=== PATIENT | male | born 1955 | race Caucasian/White ===

== ENCOUNTER 2017-12-25 21:06 | Emergency (ER) | payer BC ==
--- NOTE | 2017-12-25 22:31 | EDM.PDOC ---
ED HPI GENERAL MEDICAL PROBLEM - General Chief Complaint: ENT Problem Stated Complaint: BLOODY NOSE Time Seen by Provider: 12/25/17 21:23 Source of Information: Reports: Patient History Limitations: Reports: No Limitations - History of Present Illness INITIAL COMMENTS - FREE TEXT/NARRATIVE: 62 y.o.w.m in preh healthy condition, came to the ed due to r nostril bleed. BP was 185/87 on arrival. No trauma. Pt had a nose bleed 2 years ago. His BP was always nl in the past. 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) Other Treatments TRANSIT COACH OPERATOR: pressure to nose - Related Data Allergies Allergy/AdvReac Type Severity Reaction Status Date / Time No Known Allergies Allergy Verified 12/25/17 21:21 Home Meds: Home Meds Aspirin [Jonathon Chewable] 81 mg PO ASDIRECTED 12/25/17 [History] Hydrochlorothiazide/Lisinopril [Lisinopril/HCTZ 20-12.5 MG] 20 mg PO ASDIRECTED 12/25/17 [History] Past Medical History HEENT History: Reports: Epistaxis Cardiovascular History: Reports: Hypertension Musculoskeletal History: Reports: Fracture - Past Surgical History Musculoskeletal Surgical History: Reports: Carpal Tunnel Social & Family History - Family History Family Medical History: Noncontributory - Tobacco Use Smoking Status *Q: Current Some Day Smoker Years of Tobacco use: 10 Packs/Tins Daily: 0.1 - Caffeine Use Caffeine Use: Reports: Coffee - Recreational Drug Use Recreational Drug Use: No ED ROS ENT - Review of Systems Review Of Systems: See Below Constitutional: Reports: No Symptoms HEENT: Reports: Nosebleed Respiratory: Reports: No Symptoms Cardiovascular: Reports: No Symptoms Endocrine: Reports: No Symptoms GI/Abdominal: Reports: No Symptoms : Reports: No Symptoms Musculoskeletal: Reports: No Symptoms Skin: Reports: No Symptoms Neurological: Reports: No Symptoms Psychiatric: Reports: No Symptoms Hematologic/Lymphatic: Reports: No Symptoms Immunologic: Reports: No Symptoms ED EXAM, ENT - Physical Exam Exam: See Below Exam Limited By: No Limitations General Appearance: Alert, WD/WN, No Apparent Distress Eye Exam: Bilateral Eye: Normal Inspection Ears: Normal External Exam, Normal Canal Nose: Active Bleeding (subsided after Afrin and ICE was applied to R nose), Dried Blood (R nostril) Mouth/Throat: Normal Inspection, Normal Lips Head: Atraumatic, Normocephalic Neck: Normal Inspection, Supple, Non-Tender, Full Range of Motion Respiratory/Chest: No Respiratory Distress, Lungs Clear, Normal Breath Sounds Cardiovascular: Normal Peripheral Pulses, Regular Rate, Rhythm, No Edema GI/Abdominal: Normal Bowel Sounds, Soft, Non-Tender, No Organomegaly, No Abnormal Bruit (Male) Exam: Deferred Rectal (Males) Exam: Deferred Back: Normal Inspection, Full Range of Motion Extremities: Normal Inspection, Normal Range of Motion, Non-Tender, No Pedal Edema, Normal Capillary Refill Neurological: Alert, Oriented, CN II-XII Intact, Normal Cognition, Normal Gait Psychiatric: Normal Affect, Normal Mood Skin: Warm, Intact, Normal Color, No Rash Lymphatic: No Adenopathy Course - Vital Signs Text/Narrative:: 62 y.o.w.m in preh healthy condition, came to the ed due to r nostril bleed. BP was 185/87 on arrival. No trauma. Pt had a nose bleed 2 years ago. His BP was always nl in the past. Tmp 36.9 RR 18 Pulse ox 98 on RA PE: WNWD W M with r sided ant nosebleed Procedure: ICE to forehead, Afrin spray in R nostril: Bleeding subsided Impression: Anterior epistaxis, elevated BP Tx: Afrin, ICE Reexam: Improved, BP was 135.76 on D/C Plan: D/C with instructions Last Recorded V/S: Last Vital Signs Temp 36.6 C 12/25/17 21:23 Pulse 52 L 12/25/17 22:25 Resp 14 12/25/17 22:25 BP 137/71 12/25/17 22:25 Pulse Ox 100 12/25/17 22:25 Departure - Departure Time of Disposition: 22:27 Disposition: Home, Self-Care 01 Condition: Good Clinical Impression: Acute anterior epistaxis - Discharge Information Instructions: Nosebleed, [id number] Referrals: Kiran Bowden MD [Primary Care Provider] - Forms: ED Department Discharge Additional Instructions: Please apply ICE to forehead, apply Afrin to left nostril as recommended, please come back if any symptoms get worse acutely. hold aspirin x 1 week
== END 2017-12-25 22:33 | disposition home or self-care (01) ==
LOC: FB.ED 21:06
DX: R04.0 Epistaxis (principal); I10 Essential (primary) hypertension; F17.210 Nicotine dependence, cigarettes, uncomplicated
CPT/HCPCS: 99283